=== PATIENT | female | born 2000 | race Caucasian/White ===

== ENCOUNTER 2019-11-09 10:14 | Emergency (ER) | payer MEDICAID ==
--- NOTE | 2019-11-09 10:50 | EDM.PDOC ---
ED HPI GENERAL MEDICAL PROBLEM - General Chief Complaint: ENT Problem Stated Complaint: SORE THROAT Time Seen by Provider: 11/09/19 10:16 Source of Information: Reports: Patient History Limitations: Reports: No Limitations - History of Present Illness INITIAL COMMENTS - FREE TEXT/NARRATIVE: HISTORY AND PHYSICAL: History of present illness: Patient is a 18-year-old female who presents to the emergency room with complaints of sore throat, ear pain and sinus pressure x1 month. She states she did see her primary care provider a week and a half ago who did a sinus x- ray and prescribed her a Z-Casey for her symptoms. She states her ear pain improved but she continues to have throat discomfort. Patient denies any fever , chills, headache, change in vision, syncope or near syncope. Denies any chest pain, back pain, shortness of breath or cough. Denies any GI or symptoms. Patient has been eating and drinking appropriately. Review of systems: As per history of present illness and below otherwise all systems reviewed and negative. Past medical history: As per history of present illness and as reviewed below otherwise noncontributory. Surgical history: As per history of present illness and as reviewed below otherwise noncontributory. Social history: See social history for further information Family history: As per history of present illness and as reviewed below otherwise noncontributory. Physical exam: General: Well-developed and well-nourished 18-year-old female. Alert and oriented. Nontoxic-appearing and in no acute distress. HEENT: Atraumatic, normocephalic, pupils equal and reactive bilaterally, negative for conjunctival pallor or scleral icterus, mucous membranes moist, TMs normal bilaterally, throat mild erythema without exudate or soft tissue swelling, neck supple, nontender, trachea midline. No drooling or trismus noted. No meningeal signs. No hot potato voice noted. Lungs: Clear to auscultation, breath sounds equal bilaterally, chest nontender. Heart: S1S2, regular rate and rhythm without overt murmur Abdomen: Soft, nondistended, nontender. Skin: Intact, warm, dry. No lesions or rashes noted. Extremities: Atraumatic, moves all extremities per self without difficulty or deficits, negative for cords or calf pain. Neurovascular unremarkable. Neuro: Awake, alert, oriented. Cranial nerves II through XII unremarkable. Cerebellum unremarkable. Motor and sensory unremarkable throughout. Exam nonfocal. Notes: We discussed concerns of STD's/exposure; she declines any concern at this time. Patient's influenza and strep are negative. She states that she would like to be covered prophylactically for possible STD exposure orally. We discussed following up with an laminating machine offbearer. Supportive care measures were reviewed and discussed. Voices understanding and is agreeable to plan of care. Denies any further questions or concerns at this time. Diagnostics: Strep, influenza Therapeutics: Rocephin Prescription: Doxycylcine Impression: Pharyngitis Plan: 1. Take your medication as directed. Good handwashing and contact precautions as we discussed. 2. Warm Salt water gargles (rinse and spit) 3-4 x daily. Please get a new tooth brush after completion of your medication 3. Tylenol and or ibuprofen as needed for pain management. 4. Follow-up with your primary care provider or ENT as we discussed. Return to the ED as needed and as discussed. Definitive disposition and diagnosis as appropriate pending reevaluation and review of above. Throat Pain Score (Numeric/FACES): 8 - Related Data Allergies Allergy/AdvReac Type Severity Reaction Status Date / Time Penicillins Allergy Hives Verified 11/09/19 10:31 Home Meds: Home Meds Albuterol [Ventolin HFA] 1 puff INH Q4H #1 inhaler 07/29/18 [Rx] Doxycycline [Vibramycin] 100 mg PO BID 14 Days #28 cap 11/09/19 [Rx] Doxycycline [Vibramycin] 100 mg PO BID 7 Days #14 tab 11/09/19 [Rx] Past Medical History - Past Health History Medical/Surgical History: Denies Medical/Surgical History - Infectious Disease History Infectious Disease History: Reports: None Social & Family History - Family History Cardiac: Reports: CAD Endocrine/Metabolic: Reports: Diabetes, Type I - Tobacco Use Smoking Status *Q: Former Smoker Used Tobacco, but Quit: Yes Month/Year Tobacco Last Used: 2019 - Caffeine Use Caffeine Use: Reports: Coffee, Energy Drinks, Soda, Tea - Recreational Drug Use Recreational Drug Use: No ED ROS ENT - Review of Systems Review Of Systems: Comprehensive ROS is negative, except as noted in HPI. ED EXAM, ENT - Physical Exam Exam: See Below (See dictation) Course - Vital Signs Last Recorded V/S: Last Vital Signs Temp 98.3 F 11/09/19 10:31 Pulse 78 11/09/19 10:31 Resp 18 11/09/19 10:31 BP 90/47 L 11/09/19 10:31 Pulse Ox 99 11/09/19 10:31 - Orders/Labs/Meds Orders: Active Orders 24 hr Category Date Time Status CULTURE STREP A CONFIRMATION [] Stat Lab 11/09/19 10:35 Results STREP SCRN A RAPID W CULT CONF [RM] Stat Lab 11/09/19 10:35 Results Departure - Departure Time of Disposition: 11:17 Disposition: Home, Self-Care 01 Clinical Impression: Pharyngitis - Discharge Information Instructions: Pharyngitis, [id number] Referrals: PCP,Not In Area [Primary Care Provider] - Forms: ED Department Discharge Additional Instructions: The following information is given to patients seen in the emergency department who are being discharged to home. This information is to outline your options for follow-up care. We provide all patients seen in our emergency department with a follow-up referral. The need for follow-up, as well as the timing and circumstances, are variable depending upon the specifics of your emergency department visit. If you don't have a primary care physician on staff, we will provide you with a referral. We always advise you to contact your personal physician following an emergency department visit to inform them of the circumstance of the visit and for follow-up with them and/or the need for any referrals to a consulting specialist. The emergency department will also refer you to a specialist when appropriate. This referral assures that you have the opportunity for follow-up care with a specialist. All of these measure are taken in an effort to provide you with optimal care, which includes your follow-up. Under all circumstances we always encourage you to contact your private physician who remains a resource for coordinating your care. When calling for follow-up care, please make the office aware that this follow-up is from your recent emergency room visit. If for any reason you are refused follow-up, please contact the [facility] Emergency Department at and asked to speak to the emergency department charge nurse. [facility] [address] [place] [id number] [facility] [address] [place] [id number] 1. Take your medication as directed. Good handwashing and contact precautions as we discussed. 2. Warm Salt water gargles (rinse and spit) 3-4 x daily. Please get a new tooth brush after completion of your medication 3. Tylenol and or ibuprofen as needed for pain management. 4. Follow-up with your primary care provider or ENT as we discussed. Return to the ED as needed and as discussed. Sepsis Event Note - Evaluation Sepsis Screening Result: No Definite Risk - Focused Exam Vital Signs: Vital Signs Temp Pulse Resp BP Pulse Ox 11/09/19 10:31 98.3 F 78 18 90/47 L 99 Date Exam was Performed: 11/09/19 Time Exam was Performed: 11:05 - My Orders Last 24 Hours: My Active Orders 11/09/19 10:35 CULTURE STREP A CONFIRMATION [RM] Stat STREP SCRN A RAPID W CULT CONF [RM] Stat - Assessment/Plan Last 24 Hours: My Active Orders 11/09/19 10:35 CULTURE STREP A CONFIRMATION [RM] Stat STREP SCRN A RAPID W CULT CONF [] Stat
[2019-11-09] MEDS ORDERED: cefTRIAXone 250 MG in Lidocaine 1% 1 ML IM ONE (11:07)
== END 2019-11-09 11:43 | disposition home or self-care (01) ==
LOC: MW.ED 10:14
DX: J02.9 Acute pharyngitis, unspecified (principal); Z88.0 Allergy status to penicillin
CPT/HCPCS: 87081; 87804; 87880; 96372; 99283; J0696; J2001; 99282

== ENCOUNTER 2019-11-22 22:41 | Emergency (ER) | payer OTHER, MEDICAID ==
[2019-11-22] MEDS ORDERED: LORazepam 1 MG Tab PO ONE (22:44)
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
== END 2019-11-23 00:40 | disposition home or self-care (01) ==
LOC: MW.ED 22:41
DX: S50.02XA Contusion of left elbow, initial encounter (principal); Z88.0 Allergy status to penicillin; V47.5XXA Car driver injured in collision with fixed or stationary object in traffic accident, initial encounter
CPT/HCPCS: 72170; 73070; 73090; 73552; 73560; 73590; 99283; A9270

== ENCOUNTER 2020-06-13 07:48 | Emergency (ER) | payer MEDICAID, OTHER ==
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
== END 2020-06-13 08:18 | disposition home or self-care (01) ==
LOC: MW.ED 07:48
DX: S01.01XA Laceration without foreign body of scalp, initial encounter (principal); Z88.0 Allergy status to penicillin; W22.8XXA Striking against or struck by other objects, initial encounter
CPT/HCPCS: 99282

== ENCOUNTER 2021-08-21 10:36 | Emergency (ER) | payer BC, MEDICAID ==
--- NOTE | 2021-08-21 11:07 | EDM.PDOC ---
ED HPI GENERAL MEDICAL PROBLEM - General Chief Complaint: Upper Extremity Injury/Pain Stated Complaint: RT PINKY FINGER PAIN Time Seen by Provider: 08/21/21 10:42 Source of Information: Reports: Patient History Limitations: Reports: No Limitations - History of Present Illness INITIAL COMMENTS - FREE TEXT/NARRATIVE: HISTORY AND PHYSICAL: History of present illness: Patient is a 20-year-old female who presents emergency room today with concern of right hand pinky finger injury that occurred this morning. Patient states that she was putting together an artificial Isom tree and states that she was inserting the top portion of the tree onto the bottom portion when her finger got stuck in the pole. Patient states that it took her a minute to get the finger unstuck and since then she does have pain with bending the pinky finger. Patient states that she is fully able to bend and extend it but does have discomfort at the joint with doing so. Patient denies any other associative symptoms. Patient denies fever, chills, chest pain, shortness of breath, or cough. Denies headache, neck stiff ness, change in vision, syncope, or near syncope. Denies nausea, vomiting, abdominal pain, diarrhea, constipation, or dysuria. Has not noted any blood in urine or stool. Patient has been eating and drinking appropriately. Review of systems: As per history of present illness and below otherwise all systems reviewed and negative. Past medical history: As per history of present illness and as reviewed below otherwise noncontributory. Surgical history: As per history of present illness and as reviewed below otherwise noncontributory. Social history: See social history for further information Family history: As per history of present illness and as reviewed below otherwise noncontributory. Physical exam: General: Patient is alert, oriented, and in no acute distress. Patient sitting comfortably on exam table. Vitals stable and reviewed by me HEENT: Atraumatic, normocephalic, pupils equal and reactive bilaterally, negative for conjunctival pallor or scleral icterus, mucous membranes moist, throat clear, neck supple, nontender, trachea midline. No drooling or trismus noted. No meningeal signs. No hot potato voice noted. Lungs: Clear to auscultation, breath sounds equal bilaterally, chest nontender. Heart: S1S2, regular rate and rhythm without overt murmur Abdomen: Soft, nondistended, nontender. Negative for masses or hepatosplenomegaly. Negative for costovertebral tenderness. Pelvis: Stable nontender. Genitourinary: Deferred. Rectal: Deferred. Skin: Intact, warm, dry. No lesions or rashes noted. Extremities: Patient does have some tenderness to palpation of the middle phalanx of the right hand fifth digit without obvious deformity. Patient does have full range of motion of the fifth digit of the right upper extremity without deficit but does have pain with doing so. Intact sensation to light and deep touch of the complete right upper extremity. Radial pulses grossly intact of right upper extremity with capillary refill less than 2 seconds. Otherwise, atraumatic, negative for cords or calf pain. Neurovascular unremarkable. Neuro: Awake, alert, oriented. Cranial nerves II through XII unremarkable. Cerebellum unremarkable. Motor and sensory unremarkable throughout. Exam nonfocal. Medical Decision Making: Signs and symptoms that were prompt return to the ED thoroughly discussed with patient. Discussed importance for follow-up with a primary care provider. Voices understanding and is agreeable to plan of care. Denies any further questions or concerns at this time. Diagnostics: Fifth digit x-ray, right Therapeutics: Luis tape Prescription: None Impression: Right finger injury, fifth digit Plan: 1. Rest, ice, elevate the affected extremity. You can apply ice 15 minutes on, 15 minutes off. 2. Tylenol and/or Ibuprofen as directed for pain management or discomfort. 3. Follow up with the primary care provider as discussed. Return to the ED as needed and as discussed. Definitive disposition and diagnosis as appropriate pending reevaluation and review of above. Right pinky Pain Score (Numeric/FACES): 4 - Related Data Allergies Allergy/AdvReac Type Severity Reaction Status Date / Time Penicillins Allergy Hives Verified 08/21/21 10:40 Home Meds: Home Meds . [No Known Home Meds] 08/21/21 [History] Past Medical History - Past Health History Medical/Surgical History: Denies Medical/Surgical History - Infectious Disease History Infectious Disease History: Reports: None Social & Family History - Family History Family Medical History: No Pertinent Family History Cardiac: Reports: CAD Endocrine/Metabolic: Reports: Diabetes, Type I - Caffeine Use Caffeine Use: Reports: Energy Drinks - Recreational Drug Use Recreational Drug Use: No Review of Systems - Review of Systems Review Of Systems: Comprehensive ROS is negative, except as noted in HPI. ED EXAM, GENERAL - Physical Exam Exam: See Below (see dictation) Course - Vital Signs Last Recorded V/S: Last Vital Signs Temp 98 F 08/21/21 10:41 Pulse 77 08/21/21 11:47 Resp 18 08/21/21 11:47 BP 120/71 08/21/21 11:47 Pulse Ox 100 08/21/21 11:47 - Orders/Labs/Meds Orders: Active Orders 24 hr Category Date Time Status Communication Order [RC] STAT Care 08/21/21 11:53 Active Departure - Departure Time of Disposition: 12:22 Disposition: Home, Self-Care 01 Clinical Impression: Finger injury - Discharge Information Forms: ED Department Discharge Additional Instructions: The following information is given to patients seen in the emergency department who are being discharged to home. This information is to outline your options for follow-up care. We provide all patients seen in our emergency department with a follow-up referral. The need for follow-up, as well as the timing and circumstances, are variable depending upon the specifics of your emergency department visit. If you don't have a primary care physician on staff, we will provide you with a referral. We always advise you to contact your personal physician following an emergency department visit to inform them of the circumstance of the visit and for follow-up with them and/or the need for any referrals to a consulting specialist. The emergency department will also refer you to a specialist when appropriate. This referral assures that you have the opportunity for follow-up care with a specialist. All of these measure are taken in an effort to provide you with optimal care, which includes your follow-up. Under all circumstances we always encourage you to contact your private physician who remains a resource for coordinating your care. When calling for follow-up care, please make the office aware that this follow-up is from your recent emergency room visit. If for any reason you are refused follow-up, please contact the [facility] Emergency Department at and asked to speak to the emergency department charge nurse. [facility] [address] [place] [address] [id number] [address] [place] [address] 1. Rest, ice, elevate the affected extremity. You can apply ice 15 minutes on, 15 minutes off. 2. Tylenol and/or Ibuprofen as directed for pain management or discomfort. 3. Follow up with the primary care provider as discussed. Return to the ED as needed and as discussed. Sepsis Event Note (ED) - Evaluation Sepsis Screening Result: No Definite Risk - Focused Exam Vital Signs: Vital Signs Temp Pulse Resp BP Pulse Ox 08/21/21 11:47 77 18 120/71 100 08/21/21 10:41 98 F 89 18 123/54 L 100 - My Orders Last 24 Hours: My Active Orders 08/21/21 11:53 Communication Order [RC] STAT - Assessment/Plan Last 24 Hours: My Active Orders 08/21/21 11:53 Communication Order [RC] STAT
--- NOTE | 2021-08-21 11:50 | CR ---
Indication: Injury Comparison: None available. Technique: AP, Lateral, and Oblique views right 5th digit were obtained Findings: There is no displaced fracture or dislocation. The joint spaces are grossly preserved. There is mild fusiform soft tissue swelling. Impression: Mild fusiform soft tissue swelling of the 5th digit without evidence of definite displaced fracture. Dictated by Epifanio Thorne MD @ 08/21/2021 11:49:37 AM (Electronically Signed)
== END 2021-08-21 12:28 | disposition home or self-care (01) ==
LOC: MW.ED 10:36
DX: S69.91XA Unspecified injury of right wrist, hand and finger(s), initial encounter (principal); Z88.0 Allergy status to penicillin; W23.0XXA Caught, crushed, jammed, or pinched between moving objects, initial encounter
CPT/HCPCS: 73140-26-F9; 73140-F9; 99283-25

== ENCOUNTER 2022-10-10 19:21 | Emergency (ER) | payer OTHER, MEDICAID | END 2022-10-10 20:42 | disposition home or self-care (01) | LOC: MW.ED 19:21 | DX: S16.1XXA Strain of muscle, fascia and tendon at neck level, initial encounter (principal); Z88.0 Allergy status to penicillin; V49.49XA Driver injured in collision with other motor vehicles in traffic accident, initial encounter; Y92.410 Unspecified street and highway as the place of occurrence of the external cause | CPT/HCPCS: 70450; 70450-26; 72125; 72125-26; 99283; 99284 ==